=== PATIENT | female | born 1960 | race Caucasian/White ===

== ENCOUNTER 2020-02-03 19:54 | Observation (INO) | payer MEDICARE, BC ==
[2020-02-03] MEDS ORDERED: SODIUM CHLORIDE 0.9% 1,000 ML IV STA (20:37)
[2020-02-03 20:59] LABS: Basophils # (A) 0.1 k/uL (0-0.2); Basophils % (A) 1 %; Eosinophils # (A) 0.1 k/uL (0-0.7); Eosinophils % (A) 1 %; HCT 42.7 % (34.0-46.0); HGB 13.5 gm/dL (11.4-16.0); Lymphocytes % (A) 26 %; MCH 29.3 pg (25.0-35.0); MCHC 31.6 g/dL (31.0-37.0); MCV 92.9 fL (80.0-100.0); Mean Platelet Volume 7.1; Monocytes # (A) 0.4 k/uL (0-1.0); Monocytes % (A) 5 %; Neutrophils # (A) 5.2 k/uL (1.3-7.7); Neutrophils % (A) 66 %; Platelet Count 276 k/uL (150-450); RDW 12.3 % (11.5-15.5); WBC 7.9 k/uL (3.8-10.6)
[2020-02-03 21:09] LABS: ALT 19 U/L (4-34); AST 28 U/L (14-36); African American GFR (CKD) >90 (>60 ml/min/1.73 sqM); Albumin 4.4 g/dL (3.5-5.0); Alkaline Phosphatase 86 U/L (38-126); Anion Gap 7 mmol/L; Blood Urea Nitrogen 8 mg/dL (7-17); Calcium 10.3 mg/dL (8.4-10.2); Carbon Dioxide 25 mmol/L (22-30); Chloride 107 mmol/L (98-107); Glucose 102 mg/dL (74-99); Non-African American GFR(CKD) >90 (>60 ml/min/1.73 sqM); Potassium 3.9 mmol/L (3.5-5.1); Sodium 139 mmol/L (137-145); Total Bilirubin 0.4 mg/dL (0.2-1.3); Total Protein 7.5 g/dL (6.3-8.2)
[2020-02-03 21:14] LABS: D-Dimer 0.22 mg/L FEU (<0.60); Partial Thromboplastin Time 23.8 sec (22.0-30.0); Prothrombin Time 10.3 sec (9.0-12.0)
[2020-02-03] MEDS ORDERED: NITROGLYCERIN SL TABS 0.4 MG TAB SUBLINGUAL PRN (22:15)
[2020-02-03] MEDS ORDERED: DIAZEPAM 5 MG/ML 2 ML INJ IVP STA (22:21)
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
[2020-02-03] MEDS ORDERED: DIAZEPAM 5 MG/ML 2 ML INJ ONE (23:15)
[2020-02-04 05:48] LABS: Cholesterol 180 mg/dL (<200); HDL Cholesterol 82 mg/dL (40-60); LDL Cholesterol,Calculated 87 mg/dL (0-99); Triglycerides 54 mg/dL (<150)
[2020-02-04 07:46] VITALS: RESP 16; TEMP 98
[2020-02-04] MEDS ORDERED: ASPIRIN 325 MG TAB PO SCH (09:00)
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
[2020-02-04 12:24] VITALS: BP 132/62; PULSE 69
--- NOTE | 2020-02-04 12:30 | P.STRESS ---
- Stress Test Note Stress Test Results/Findings: Exam Performed: stress echo exercise Exam Date: 02/04/20 Reason for Exam: Chest Pain Height: 5 ft 6 in Weight: 69.1 kg Protocol: Magdi Stage: 3 Duration of Exercise: 10:59 Resting Heart Rate: 71 Resting Blood Pressure: 141/81 Maximum Achieved Heart Rate: 169 Maximum Achieved Blood Pressure: - 85% PMHR: 136 100% PMHR: 160 METS: 12.1 Technologist Comment: Stress Test Results/Findings: This is a 59-year-old female with history of ischemic heart disease in the family who was admitted to the hospital with chest pain and palpitations. Stress data: Baseline EKG showed sinus rhythm with normal NE and QRS duration. Patient works on a Magdi protocol for about 11 minutes achieving a maximum rate of 164, blood pressure of about 150/70. EKGs taken a x-ray did not reveal any significant changes from baseline, except mild J-point depression which are not significant for ischemia. Patient did not experience any chest pain. Echo data: Patient with limitation normal wall motion and thickening. Exercise echo images showed augmentation of wall motion and thickening in all segments. Final impression #1. Excellent exercise capacity #2 No chest pain during exercise. #3. Negative stress echo
--- NOTE | 2020-02-04 13:00 | ECHOF ---
Referral Reason:chest pain MEASUREMENTS -------- HEIGHT: 167.6 cm WEIGHT: 68.9 kg BP: 121/65 RVIDd: 2.9 cm (< 3.3) IVSd: 1.0 cm (0.6 - 1.1) LVIDd: 4.4 cm (3.9 - 5.3) LVPWd: 1.0 cm (0.6 - 1.1) IVSs: 1.6 cm LVIDs: 3.1 cm LVPWs: 1.3 cm LA Diam: 3.3 cm (2.7 - 3.8) LAESV Index (A-L): 20.10 ml/m Ao Diam: 2.9 cm (2.0 - 3.7) AV Cusp: 2.3 cm (1.5 - 2.6) MV EXCURSION: 21.475 mm (> 18.000) MV EF SLOPE: 68 mm/s (70 - 150) EPSS: 0.5 cm MV E Micha: 0.67 m/s MV DecT: 302 ms MV A Micha: 0.94 m/s MV E/A Ratio: 0.71 AR PHT: 719 ms RAP: 5.00 mmHg RVSP: 32.30 mmHg FINDINGS -------- Sinus rhythm. This was a technically good study. The left ventricular size is normal. Left ventricular wall thickness is normal. Overall left vent ricular systolic function is normal with, an EF between 60 - 65 %. The right ventricle is normal in size. Normal LA size by volume 22+/-6 ml/m2. The right atrium is normal in size. Aneurysmal Interatrial septum. There is mild aortic valve sclerosis. There is mild aortic regurgitation. There is trace mitral regurgitation. Mild tricuspid regurgitation present. Right ventricular systolic pressure is normal at < 35 mmHg. Trace/mild (physiologic) pulmonic regurgitation. The aortic root, ascending aorta and aortic arch are normal. Normal inferior vena cava with normal inspiratory collapse consistent with estimated right atrial pre ssure of 5 mmHg. The inferior vena cava is mildly dilated. There is no pericardial effusion. CONCLUSIONS -------- 1. Sinus rhythm. 2. This was a technically good study. 3. The left ventricular size is normal. 4. Left ventricular wall thickness is normal. 5. Overall left ventricular systolic function is normal with, an EF between 60 - 65 %. 6. The right ventricle is normal in size. 7. Normal LA size by volume 22+/-6 ml/m2. 8. The right atrium is normal in size. 9. Aneurysmal Interatrial septum. 10. There is mild aortic valve sclerosis. 11. There is trace mitral regurgitation. 12. Mild tricuspid regurgitation present. 13. Right ventricular systolic pressure is normal at < 35 mmHg. 14. Trace/mild (physiologic) pulmonic regurgitation. 15. The aortic root, ascending aorta and aortic arch are normal. 16. Normal inferior vena cava with normal inspiratory collapse consistent with estimated right atrial pressure of 5 mmHg. 17. The inferior vena cava is mildly dilated. 18. There is no pericardial effusion. PHARMACY STUDENT: Odalis Rosa RDCS
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
== END 2020-02-04 16:00 | disposition home or self-care (01) ==
LOC: EC 19:54 → 3SCARD 21:43
PROVIDERS: ADMIT Hospitalist; ATTEND Hospitalist
DX: R07.89 Other chest pain (principal); F41.9 Anxiety disorder, unspecified; R06.02 Shortness of breath; R42 Dizziness and giddiness; G89.4 Chronic pain syndrome; M54.9 Dorsalgia, unspecified; F51.04 Psychophysiologic insomnia; F51.05 Insomnia due to other mental disorder; Z87.828 Personal history of other (healed) physical injury and trauma; Z63.79 Other stressful life events affecting family and household; Z20.828 Contact with and (suspected) exposure to other viral communicable diseases; Z82.8 Family history of other disabilities and chronic diseases leading to disablement, not elsewhere classified; Z79.891 Long term (current) use of opiate analgesic; Z79.899 Other long term (current) drug therapy; Z79.82 Long term (current) use of aspirin; Z82.49 Family history of ischemic heart disease and other diseases of the circulatory system
CPT/HCPCS: 93005 ×2; 96374; 99285; 36415; 93351; 85379; 80061; 80053; 83735; 84484 ×2; 85025; 85610; 85730; 87635; G0378 ×2; J3360; 93306

== ENCOUNTER → 2022-04-25 | Outpatient (CLI) | payer MEDICARE, BC ==
[2022-04-25 19:02] LABS: Basophils # (A) 0.05 X 10*3/uL (0.00-0.10); Basophils % (A) 0.9 %; Eosinophils # (A) 0.04 X 10*3/uL (0.04-0.35); Eosinophils % (A) 0.7 %; HCT 42.6 % (37.2-46.3); HGB 13.5 g/dL (12.0-15.0); Immature Grans, Automated 0.2 %; Lymphocytes # (A) 1.69 X 10*3/uL (0.90-5.00); Lymphocytes % (A) 31.6 %; MCH 29.7 pg (27.0-32.0); MCHC 31.7 g/dL (32.0-37.0); MCV 93.8 fL (80.0-97.0); Mean Platelet Volume 10.8 fL (9.5-12.2); Monocytes # (A) 0.34 X 10*3/uL (0.20-1.00); Monocytes % (A) 6.4 %; NRBC Per 100 WBC 0 /100 WBCS (0.0-0.0); Neutrophils # (A) 3.21 X 10*3/uL (1.80-7.70); Neutrophils % (A) 60.2 %; Platelet Count 272 X 10*3/uL (140-440); RBC 4.54 X 10*6/uL (4.10-5.20); RDW 12.6 % (11.5-14.5); WBC 5.34 X 10*3/uL (4.50-10.00)
[2022-04-25 22:35] LABS: Albumin 4.5 g/dL (3.8-4.9); Albumin/Globulin Ratio 1.94 (1.60-3.17); Anion Gap 10.5 mmol/L (10.00-18.00); BUN/Creat Ratio 23.13 Ratio (12.00-20.00); Blood Urea Nitrogen 13.6 mg/dL (9.0-27.0); Calcium 9.7 mg/dL (8.7-10.3); Carbon Dioxide 27.8 mmol/L (20.0-27.5); Globulin 2.3 g/dL (1.6-3.3); HDL Cholesterol 96.7 mg/dL (40.00-60.00); Magnesium 2.2 mg/dL (1.5-2.4); Non-African American GFR(CKD) 98.3 (60.0-200.0); Potassium 4.4 mmol/L (3.5-5.5); T4, Free (Free Thyroxine) 1.13 ng/dL (0.800-1.800); Total Bilirubin 0.3 mg/dL (0.30-1.20); Total Protein 6.8 g/dL (6.2-8.2); Triglycerides 45.9 mg/dL (0.00-149.00)
[2022-04-25 23:05] LABS: Chol/HDL Ratio 2.19 Ratio; LDL Cholesterol,Direct Reflex 93.3 mg/dL (0.00-129.00)
== END | disposition home or self-care (01) ==
LOC: LABWHC1 13:00
PROVIDERS: ATTEND Family Medicine
DX: E78.5 Hyperlipidemia, unspecified (principal); R53.82 Chronic fatigue, unspecified; R42 Dizziness and giddiness
CPT/HCPCS: 36415; 80053; 80061; 83721; 83735; 84439; 84443; 84630; 85025

== ENCOUNTER → 2022-05-04 | Outpatient (CLI) | payer MEDICARE, BC ==
--- NOTE | 2022-05-04 12:01 | US ---
EXAMINATION TYPE: US carotid duplex BILAT DATE OF EXAM: 05/04/2022 COMPARISON: NONE CLINICAL HISTORY: R42 DIZZINESS,R53.82 FATIGUE,E78.5 HYPERLIPEMIA. Dizziness, fatigue TECHNIQUE: Carotid duplex ultrasound examination. Indirect Doppler criteria was utilized. FINDINGS: EXAM MEASUREMENTS: RIGHT: Peak Systolic Velocity (PSV) cm/sec ----- Right CCA: -76.7 ----- Right ICA: -79.1 ----- Right ECA: -68.8 ICA/CCA ratio: 1.0 RIGHT: End Diastole cm/sec ----- Right CCA: -17.8 ----- Right ICA: -31.8 ----- Right ECA: -11.3 LEFT: Peak Systolic Velocity (PSV) cm/sec ----- Left CCA: -50.8 ----- Left ICA: -74.7 ----- Left ECA: -58.8 ICA/CCA ratio: 1.4 LEFT: End Diastole cm/sec ----- Left CCA: -16.4 ----- Left ICA: -25.9 ----- Left ECA: -5.97 VERTEBRALS (direction of flow): Right Vertebral: Antegrade Left Vertebral: Antegrade Rhythm: Normal No significant focal plaque on grayscale images . 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 Criteria for Assigning % of Stenosis / Diameter reduction (Estimation based on the indirect measurements of the internal carotid artery velocities (ICA PSV). 1. Normal (no stenosis)=ICA PSV < 125 cm/s: ratio < 2.0: ICA EDV<40 cm/s. 2. Less than 50% stenosis=ICA PSV < 125 cm/s: ratio < 2.0: ICA EDV<40 cm/s. 3. 50 to 69% stenosis=ICA PSV of 125 to 230 cm/s: ration 2.0 ? 4.0: ICA EDV 40-100 cm/s. 4. Greater than 70% stenosis to near occlusion= ICA PSV > 230 cm/s: ratio > 4.0: ICA EDV > 100 cm/s. 5. Near occlusion= ICA PSV velocities may be low or undetectable: variable ratio and ICA EDV. 6. Total occlusion=unable to detect flow.
--- NOTE | 2022-05-06 11:21 | CA ---
Transthoracic Echo Report Name: Lizz Brady Age: 61 Gender: F : 1960 Exam Date: 05/04/2022 11:46 Exam Location: [facility] Ht (in): 63 Wt (lb): 126 Ordering Physician: Toby Ervin MD Attending/Referring Phys: Emergency Room Clinician Angela Farooq RDCS Procedure CPT: Indications: R42 DIZZINESS,R53.82 FATIGUE,E78.5 HYPERLIDEMIA Cardiac Hx: Technical Quality: Fair Contrast 1: Total Dose (mL): Contrast 2: Total Dose (mL): MEASUREMENTS (Male / Female) Normal Values 2D ECHO LV Diastolic Diameter PLAX 5.0 cm 4.2 - 5.9 / 3.9 - 5.3 cm LV Systolic Diameter PLAX 3.0 cm IVS Diastolic Thickness 0.8 cm 0.6 - 1.0 / 0.6 - 0.9 cm LVPW Diastolic Thickness 0.8 cm 0.6 - 1.0 / 0.6 - 0.9 cm LV Relative Wall Thickness 0.3 RV Internal Dim ED PLAX 3.3 cm LA Volume 47.7 cm??? 18 - 58 / 22 - 52 cm??? M-MODE Aortic Root Diameter MM 2.9 cm LA Systolic Diameter MM 2.6 cm LA Ao Ratio MM 0.9 AV Cusp Separation MM 1.8 cm DOPPLER AV Peak Velocity 111.4 cm/s AV Peak Gradient 5.0 mmHg AI Peak Velocity 434.4 cm/s AI Peak Gradient 75.5 mmHg AI Pressure Half Time 699.4 ms LVOT Peak Velocity 92.2 cm/s LVOT Peak Gradient 3.4 mmHg MV Area PHT 3.6 cm??? Mitral E Point Velocity 50.9 cm/s Mitral A Point Velocity 89.8 cm/s Mitral E to A Ratio 0.6 MV Deceleration Time 210.5 ms MV E' Velocity 6.4 cm/s Mitral E to MV E' Ratio 7.9 TR Peak Velocity 251.9 cm/s TR Peak Gradient 25.4 mmHg Right Ventricular Systolic Press 29.9 mmHg FINDINGS Left Ventricle Normal Left ventricular size, wall thickness, systolic function with no obvious regional wall motion abnormalities. Normal Left ventricular diastolic filling pattern. Left ventricular ejection fraction is estimated at 55-60 %. Right Ventricle Normal right ventricular size and function. Right ventricular systolic pressure within normal limits. Right Atrium Normal right atrial size. Aneurismal atrial septum. Left Atrium Normal left atrial size. No evidence for an atrial septal defect. Mitral Valve Structurally normal mitral valve. Mild to moderate mitral regurgitation. Aortic Valve Trileaflet aortic valve. Aortic valve sclerosis. Trace to mild aortic regurgitation. Tricuspid Valve Structurally normal tricuspid valve. Mild tricuspid regurgitation. Pulmonic Valve Trace pulmonic regurgitation. Pericardium No pericardial effusion. Aorta Normal size aortic root and proximal ascending aorta. CONCLUSIONS Normal left ventricular dimension and systolic function Mitral valve prolapse was mild to moderate MR Mild aortic insufficiency Previewed by: Dr. Clint Waterman MD (Electronically Signed) Final Date: 06 May 2022 11:20
== END | disposition home or self-care (01) ==
LOC: RADUSWWP 10:36
PROVIDERS: ATTEND Family Medicine
DX: I08.1 Rheumatic disorders of both mitral and tricuspid valves (principal); R42 Dizziness and giddiness; R53.82 Chronic fatigue, unspecified; E78.5 Hyperlipidemia, unspecified
CPT/HCPCS: 93306; 93880

== ENCOUNTER → 2022-06-08 | Outpatient (CLI) | payer MEDICARE, BC ==
[2022-06-08 20:20] LABS: Gliadin AB IgA, Deaminated NEGATIVE (NEGATIVE); Gliadin AB IgA, Unit 2.3 U/mL; Gliadin AB IgG, Deaminated NEGATIVE (NEGATIVE); Gliadin AB IgG, Unit 0.4 U/mL
== END | disposition home or self-care (01) ==
LOC: LABWHC1 10:05
PROVIDERS: ATTEND Family Medicine
DX: K52.9 Noninfective gastroenteritis and colitis, unspecified (principal)
CPT/HCPCS: 36415; 83516; 85652; 86140

== ENCOUNTER 2022-07-10 07:06 | Day surgery (SDC) | payer MEDICARE, BC ==
[2022-07-09 12:26] VITALS: BMI 20.3
[~2022-07-10 07:06] MED LIST: LACTATED RINGERS 1,000 ML IV SCH
[2022-07-10 07:55] VITALS: RESP 16; TEMP 97.2
[2022-07-10] MEDS ORDERED: PROPOFOL 10 MG/ML 20 ML VIAL IV ONE (08:50)
[2022-07-10] MEDS ORDERED: LIDOCAINE 2% INJ 20 MG/ML (2 ML VIAL) ONE (08:50)
--- NOTE | 2022-07-10 09:09 | P.PCN ---
Date of Procedure: 07/10/22 Procedure(s) Performed: Brief history: Patient is a pleasant 61-year-old white female scheduled for an elective upper endoscopy as well as colonoscopy as a part of evaluation of abdominal pain, intermittent nausea and chronic diarrhea for the last 1 year duration. She has bowel movements anywhere from 3-4 a day which are loose to watery in consistency with no bleeding. She lost 50 pounds since onset of the symptoms a year ago. Procedure performed: Esophagogastroduodenoscopy biopsy Colonoscopy with biopsy Preoperative diagnosis: Abdominal pain/nausea Chronic diarrhea and weight loss of 50 pounds in the last 1 year duration Anesthesia: MAC Procedure: After informed consent was obtained from the patient was brought into the endoscopy unit and IV sedation was administered by anesthesia under continuous monitoring. Initially upper endoscopy was done. The Olympus GF 160 video endoscope was inserted inserted into the mouth and esophagus intubated without any difficulty and was gradually advanced into the stomach and duodenum and carefully examined. The bulb and second part of the duodenum appeared normal. Biopsies were done from the duodenum to rule out celiac disease. The scope was then withdrawn into the stomach adequately insufflated with air and upon careful examination the antrum had mild mottling of the mucosa consistent with gastritis and biopsies were done from this area. The body, cardia and fundus appeared normal. The scope was then withdrawn into the esophagus. The GE junction was located at 40 cm to the incisors. It appeared regular with no erythema erosions or ulcerations. Rest of the esophagus appeared normal. Patient tolerated the procedure well. At this time the patient continued to remain sedation. Initial digital rectal examination was normal. Olympus CF 160 video colonoscope was then inserted into the rectum and gradually advanced to the cecum without any difficulty. Careful examination was performed as the scope was gradually being withdrawn. The prep was excellent. The cecum, ascending colon, transverse colon, descending colon, sigmoid colon and rectum appeared normal. Random biopsies were done from ascending and descending colon to rule out microscopic/collagenous colitis Retroflexion was performed in the rectum and no lesions were noted. Patient tolerated the procedure well. Impression: 1. Upper endoscopy revealed mild antral gastritis but no evidence of esophagitis or peptic ulcer 2. Colonoscopy was within normal limits with no evidence of colitis or colorectal Recommendations: Findings of this examination were discussed with the patient as well as her family. She was advised to follow with the biopsy results. Follow up in office in 2 weeks. Recommend repeat colonoscopy in 10 years..
[2022-07-10 09:37] VITALS: BP 142/76; PULSE 61
== END 2022-07-10 09:56 | disposition home or self-care (01) ==
LOC: ORWHC2ENDO 07:06
PROVIDERS: ATTEND Internal Medicine Gastroenterology
DX: K52.9 Noninfective gastroenteritis and colitis, unspecified (principal); K29.50 Unspecified chronic gastritis without bleeding; F41.9 Anxiety disorder, unspecified; G89.29 Other chronic pain; K21.9 Gastro-esophageal reflux disease without esophagitis; Z90.49 Acquired absence of other specified parts of digestive tract; Z98.51 Tubal ligation status; Z79.899 Other long term (current) drug therapy
CPT/HCPCS: 45380; 43239; J2704; J2001; 88305; 88342

== ENCOUNTER → 2022-10-16 | Outpatient (CLI) | payer MEDICARE, BC ==
[2022-10-16 13:22] VITALS: BP 109/74; PULSE 84; RESP 17; TEMP 98.1
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
== END ==
LOC: WWCWWP 13:06
PROVIDERS: ATTEND Obstetrics & Gynecology
DX: Z01.419 Encounter for gynecological examination (general) (routine) without abnormal findings (principal); F41.9 Anxiety disorder, unspecified; R19.7 Diarrhea, unspecified; R63.4 Abnormal weight loss; R14.0 Abdominal distension (gaseous); R10.2 Pelvic and perineal pain; K21.9 Gastro-esophageal reflux disease without esophagitis; E78.5 Hyperlipidemia, unspecified; Z68.1 Body mass index [BMI] 19.9 or less, adult

== ENCOUNTER → 2022-10-23 | Outpatient (CLI) | payer MEDICARE, BC ==
--- NOTE | 2022-10-23 12:54 | US ---
EXAMINATION TYPE: US abdomen complete DATE OF EXAM: 10/23/2022 COMPARISON: NONE CLINICAL HISTORY: 62-year-old female R10.9 UNSPECIFIED ABDOMINAL PAIN. TECHNIQUE: Multiple sonographic images of the abdomen are obtained. FINDINGS: EXAM MEASUREMENTS: Liver Length: 14.3 cm Gallbladder Wall: 0.2 cm CBD: 0.5 cm Spleen: 9.8 cm Right Kidney: 10.9 x 4.0 x 4.4 cm Left Kidney: 11.3 x 4.2 x 5.5 cm Pancreas: Partially obscured by bowel gas, portions visualized wnl. Liver: homogeneous Gallbladder: wnl Evidence for sonographic Connolly's sign: No CBD: wnl Spleen: wnl Right Kidney: mild hydronephrosis. Nonobstructive echogenic calculus measuring 0.4 x 0.3 x 0.3cm, ec hogenic renal pyramids Left Kidney: Slightly echogenic renal pyramids, somewhat limited views due to bowel gas. No hydroneph rosis. Upper IVC: measures 2.3cm, distended appearing. Abd Aorta: proximal upper limits of normal at 2.3 cm. Right and left iliac arteries normal caliber me asuring up to 1.2 cm. IMPRESSION: 1. Mild right-sided hydronephrosis. Correlate for any renal colic and with urinalysis. 2. Nonobstructive 4 mm right renal stone. 3. Somewhat echogenic appearance to the medullary pyramids of both kidneys. Consider short interval f ollow-up. Findings are nonspecific but may be seen in the setting of medullary sponge kidney. The ade earance does not clearly show nephrocalcinosis.
== END | disposition home or self-care (01) ==
LOC: RADUSWWP 07:32
PROVIDERS: ATTEND Internal Medicine Gastroenterology
DX: N13.2 Hydronephrosis with renal and ureteral calculous obstruction (principal); N28.89 Other specified disorders of kidney and ureter
CPT/HCPCS: 76700

== ENCOUNTER → 2022-10-23 | Outpatient (CLI) | payer MEDICARE, BC ==
--- NOTE | 2022-10-23 12:34 | US ---
EXAMINATION TYPE: US pelvic complete DATE OF EXAM: 10/23/2022 COMPARISON: NONE CLINICAL HISTORY: 62-year-old female R10.2 PELVIC AND PERINEAL PAIN R14.0 ABDOMINAL BLOATING. TECHNIQUE: Transvaginal (TV) and Transabdominal (TA) Date of LMP: 10 years prior FINDINGS: EXAM MEASUREMENTS: Uterus: 5.2 x 2.5 x 3.7 cm Endometrial Stripe: 0.3 cm Right Ovary: Extensive peristalsing bowel obscuring ovary Left Ovary: Extensive peristalsing bowel obscuring ovary 1. Uterus: Anteverted, mildly heterogeneous myometrium, hypoechoic probable fibroid right posterior uterine body measuring 1.1 x 0.8 x 1.0cm 2. Endometrium: wnl 3. Right Ovary: Obscured by overlying bowel gas 4. Left Ovary: Obscured by overlying bowel gas 5. Bilateral Adnexa: Extensive peristalsing bowel in bilateral adnexa 6. Posterior cul-de-sac: wnl IMPRESSION: 1. Endometrial stripe measures thin at 3 mm. 2. A round 1.1 cm hypoechoic area within the right posterior uterine body myometrium, likely intramur al fibroid. 3. Unable to visualize either ovary due to extensive peristalsing bowel in both adnexa.
--- NOTE | 2022-10-23 15:51 | P.PN ---
Progress Note - Text Progress Note Date: 10/23/22 OUTPATIENT FOLLOW-UP NOTE TEST(S)/RESULTS: Pelvic ultrasound done on 10/23/2022 shows a normal endometrial stripe of 3 mm, a 1.1 cm probable uterine fibroid and no ovarian masses are seen. METHOD OF NOTIFICATION: She was notified by phone. PATIENT COMMENTS: The patient is requesting a prescription for genital HSV. She currently is near the tail end of an outbreak. DIAGNOSIS: No evidence of ovarian mass by ultrasound to explain her multiple symptoms including weight loss, heart racing and abdominal bloating. DISCUSSION: I have explained that her many symptoms are most likely not gynecologic in nature. A prescription for Valtrex 500 mg by mouth twice a day 3 [facility]. There will be 5 refills. PLAN: She is to establish with a primary care physician who can then evaluate her for her multiple symptoms.
== END | disposition home or self-care (01) ==
LOC: RADUSWWP 07:34
PROVIDERS: ATTEND Obstetrics & Gynecology
DX: R10.2 Pelvic and perineal pain (principal); R14.0 Abdominal distension (gaseous)
CPT/HCPCS: 76830; 76856

== ENCOUNTER → 2022-12-14 | Outpatient (CLI) | payer MEDICARE, BC ==
--- NOTE | 2022-12-15 08:26 | US ---
EXAMINATION TYPE: US venous doppler duplex LE RT DATE OF EXAM: 12/14/2022 4:32 PM COMPARISON: NONE CLINICAL HISTORY: 62-year-old female M79.661 Pain right leg. SIDE PERFORMED: right TECHNIQUE: The lower extremity deep venous system is examined utilizing real time linear array sonog chata with graded compression, doppler sonography and color-flow sonography. FINDINGS: VESSELS IMAGED: Common Femoral Vein Deep Femoral Vein Greater Saphenous Vein * Femoral Vein Popliteal Vein Small Saphenous Vein * Proximal Calf Veins (* superficial vessels) Right Leg: No evidence of DVT. Minimally complex fluid collection right popliteal fossa = 5.6 x 1.6 x 4.6cm, Pascual's cyst IMPRESSION: 1. No evidence for DVT within the right lower extremity imaged from the groin to the upper calf. 2. Moderate sized Pascual's cyst measuring 5.6 x 4.6 cm.
== END | disposition home or self-care (01) ==
LOC: RADUSWWP 16:00
PROVIDERS: ATTEND Family Medicine
DX: M79.661 Pain in right lower leg (principal); M71.21 Synovial cyst of popliteal space [Baker], right knee

== ENCOUNTER → 2023-01-24 | Outpatient (CLI) | payer MEDICARE, BC ==
--- NOTE | 2023-01-25 06:44 | MR ---
EXAMINATION TYPE: MR abdomen wo con DATE OF EXAM: 01/24/2023 COMPARISON: Ultrasound abdomen October 23, 2022. HISTORY: Diarrhea, weight loss. Standard multiplanar, multisequence MRI departmental protocol Multiplanar, multisequence images of the abdomen were acquired without contrast. Diffusion weighted i maging was performed. FINDINGS: Lung bases are grossly clear. Liver and gallbladder appear within normal limits. No biliary dilatation is evident. Spleen and both adrenal glands are felt within normal limits. No concerning p ancreatic mass or ductal dilatation identified. No concerning renal mass or hydronephrosis. Patient h as little intra-abdominal fat making evaluation slightly suboptimal. No suspicious bowel dilatation i s seen. There is slight scoliotic curvature in the thoracolumbar spine. No intra-abdominal ascites. N o greater than 3.0 cm AAA. IMPRESSION: No suspicious findings are evident on noncontrast MRI.
== END | disposition home or self-care (01) ==
LOC: RADMRIMAIN 12:34
PROVIDERS: ATTEND Internal Medicine Gastroenterology
DX: R63.4 Abnormal weight loss (principal)
CPT/HCPCS: 74181

== ENCOUNTER → 2023-07-17 | Outpatient (CLI) | payer MEDICARE, BC ==
--- NOTE | 2023-07-17 09:13 | P.PN ---
Progress Note - Text Progress Note Date: 07/17/23 Chief Complaint: Vulvar itching during the past month which has been getting worse. HPI: This is a 62-year-old with an LMP of 2009. The patient has been experiencing right vulvar itching during the past month and this has become much more severe during the past few days. She states she only notices it on the right vulvar area and extends to the area of the anus. The itching has gotten so severe that she has used a towel to rub and scratch the area. She denies any vaginal discharge or vaginal odor. She has used various [id number] creams including Monistat to see if it helps, but nothing seems to help. She has noticed during the past month that she has had some urinary urgency and does not feel like she is emptying her bladder very well. She denies dysuria or significant urinary frequency. She has had loose stools in the morning. She has not had any sexual activity during the past 6 months. She denies any sexual activity with anyone other than her . ROS: She is gained about 13 pounds over the past 9 months. Respiratory: Some sinus drainage. She denies cardiac problems. GI: She has noticed loose stool in the a.m. and was diagnosed with IBS. She denies nausea or vomiting. : As in the HPI. PE: Blood pressure: 133/77, Height: 5 feet 6 inches, Weight: 134 pounds, Temperature: 98.3, Pulse: 59. Pulse oximeter 97%. This is a well developed, well nourished, white female who is alert and orientedx3, in no acute distress. External genitalia: The posterior right labia majora is swollen and erythematous. There are no signs of ulceration or excoriation. There is no significant warmth. There is a stripe of a macular type rash extending in the crease in the groin from the right labia majora toward the right buttock with some erythema also extending toward the perineum and right perianal areas. Vagina: There is no unusual discharge or odor noted. Impression: 1. 62-year-old menopausal female with acute vulvitis with severe itching. Differential diagnosis will include contact dermatitis, lakhwinder vaginitis, bacterial vaginosis, or other nonspecific dermatitis. Recurrent genital HSV is unlikely. 2. Urinary symptoms including some urinary urgency and incomplete emptying of the bladder. Possible UTI as well as possible urinary retention secondary to her ongoing genital symptoms and #1 Plan: 1. Affirm vaginitis panel has been obtained from the vagina. 2. Urine has been obtained for urinalysis with culture and sensitivities. 3. Kenalog 0.1% cream applied twice a day as needed for vulvar itching. The electronic prescription will be sent to [facility] on [facility]. I have recommended that she avoid over washing with soap as well as avoiding rubbing and scratching. 4. Benadryl as directed as needed for itching at night. She can also use this during the day, but she was warned about potential sedative effects. Time spent with the patient: 25 minutes
[2023-07-17 09:50] VITALS: BP 133/77; PULSE 59; RESP 17; TEMP 98.3
[2023-07-18 05:43] LABS: Appearance,Urine Clear (Clear); Bilirubin,Urine Negative (Negative); Blood,Urine Negative (Negative); Color,Urine Yellow (Yellow); Ketones,Urine Negative (Negative); Nitrite,Urine Negative (Negative); PH, Urine 6.5; Specific Gravity,Urine 1.003 (1.001-1.030); Urobilinogen,Urine 0.2 E.U./DL
[2023-07-18 14:21] LABS: Gardnerella Negative (Negative); Trichomonas Negative (Negative)
== END ==
LOC: WWCWWP 08:30
PROVIDERS: ATTEND Obstetrics & Gynecology
DX: N76.2 Acute vulvitis (principal); R39.15 Urgency of urination; Z78.0 Asymptomatic menopausal state
CPT/HCPCS: 81003; 87086; 87480; 87510; 87660

== ENCOUNTER → 2023-10-29 | Outpatient (CLI) | payer MEDICARE, BC ==
[2023-10-30 04:34] LABS: Alternaria alternata IgE <0.10 kU/L; Aspergillus fumagatus IgE <0.10 kU/L; Birch IgE <0.10 kU/L; Cat Epith & Dander IgE <0.10 kU/L; Cladosporian herbarum IgE <0.10 kU/L; Cockroach IgE <0.10 kU/L; Dermato. farinae IgE <0.10 kU/L; Dog Dander IgE <0.10 kU/L; Maple (Box Elder) IgE <0.10 kU/L; Oak IgE <0.10 kU/L; Ragweed,Common IgE <0.10 kU/L
[2023-10-30 14:16] LABS: Aureo. pullulans IgE <0.10 kU/L (<0.10); Aureo. pullulans IgE Class CLASS 0; Candida albicans IgE Class CLASS 0; Epicoccum purpurascens Class CLASS 0; Epicoccum purpurascens IgE <0.10 kU/L (<0.10); Johnson Grass IgE Class CLASS 0; Mucor racemosus IgE <0.10 kU/L (<0.10); Mucor racemosus IgE Class CLASS 0; Rhizopus nigricans IgE <0.10 kU/L (<0.10); Rhizopus nigricans IgE Class CLASS 0; Timothy Grass IgE <0.10 kU/L (<0.10); Timothy Grass IgE Class CLASS 0
[2023-10-30 14:17] LABS: S.rostrata/Helminth Class CLASS 0; S.rostrata/Helminth IgE <0.10 kU/L (<0.10); Sycamore(Mpl.Lf) IgE <0.10 kU/L (<0.10); Sycamore(Mpl.Lf) IgE Class CLASS 0; Walnut Tree IgE <0.10 kU/L (<0.10); Walnut Tree IgE Class CLASS 0
[2023-10-30 14:18] LABS: Com. Pigweed IgE <0.10 kU/L (<0.10); Com. Pigweed IgE Class CLASS 0; Cottonwood IgE <0.10 kU/L (<0.10); English Plantain IgE Class CLASS 0; Lamb's Quarter IgE <0.10 kU/L (<0.10); Lamb's Quarter IgE Class CLASS 0; White Ash IgE Class CLASS 0
== END | disposition home or self-care (01) ==
LOC: LABWHC1 14:46
PROVIDERS: ATTEND Otolaryngology
DX: J30.89 Other allergic rhinitis (principal)
CPT/HCPCS: 36415; 82785; 86003

== ENCOUNTER → 2024-01-10 | Outpatient (CLI) | payer MEDICARE, BC ==
--- NOTE | 2024-01-10 09:16 | US ---
EXAMINATION TYPE: US thyroid st tissue head/neck DATE OF EXAM: 01/10/2024 COMPARISON: NONE CLINICAL INDICATION: Female, 63 years old with history of K21.9 GASTRO-ESOPHAGEAL REFLUX DISEASE WITH O E06.3; abn labs GLAND SIZE: Right Lobe: 4.6 x 1.3 x 1.3 cm Overall Parenchyma: homogeneous Left Lobe: 4.3 x .9 x 1.3 cm Overall Parenchyma: homogeneous Isthmus Thickness: .3 cm NODULES RIGHT: # of nodules measured on right: 1 1. 1.0 X .3 x .5 cm, upper lateral, cystic or almost completely cystic, anechoic nodule, which is w ider than tall, with smooth margins, without echogenic foci. Prior size: no previous. LEFT: # of nodules measured on left: 0 ISTHMUS: # of nodules measured in the isthmus: 0 Bilateral neck scanned, no evidence of lymphadenopathy. IMPRESSION: Benign cystic nodule right thyroid lobe. No concerning solid nodules identified 2016 ACR TI-RADS LEVEL: *Highest TI-RADS level nodule reported
--- NOTE | 2024-01-10 09:19 | US ---
EXAMINATION TYPE: US abdomen complete DATE OF EXAM: 01/10/2024 COMPARISON: NONE CLINICAL INDICATION: Female, 63 years old with history of K21.9 GASTRO-ESOPHAGEAL REFLUX DISEASE WITH O E06.3; pain TECHNIQUE: Multiple sonographic images of the abdomen are obtained. 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 The intrahepatic portion of the IVC and proximal abdominal aorta are within normal limits. There is no evidence of cholelithiasis. Common bile duct is unremarkable. The visu alized portions of the pancreas are homogenous. The spleen is unremarkable. Kidneys are symmetric a nd free of hydronephrosis. No renal lesions are seen. IMPRESSION: No discrete abnormality seen.
== END | disposition home or self-care (01) ==
LOC: RADUSWWP 08:20
PROVIDERS: ATTEND Internal Medicine
DX: K21.9 Gastro-esophageal reflux disease without esophagitis (principal); E04.1 Nontoxic single thyroid nodule
CPT/HCPCS: 76536; 76700

== ENCOUNTER → 2024-01-16 | Outpatient (CLI) | payer MEDICARE, BC ==
--- NOTE | 2024-01-17 17:51 | MR ---
EXAMINATION TYPE: MR brain wo con DATE OF EXAM: 01/16/2024 COMPARISON: None HISTORY: Chronic Rhinitis CONTRAST: Performed utilizing 0 mL intravenous Gadavist gadolinium contrast. TECHNIQUE: Multiplanar, multiecho imaging on a 3.0 Marilyn magnet is performed through the brain. Stud y is performed within 24 hours of arrival to the hospital. The craniovertebral junction is normal. The pituitary is normal. Cribriform plate appears unremarka ble. Diffusion-weighted imaging is performed. No abnormal hyperintensity is present to suggest an acute i ntracranial infarct or acute ischemic change. There is a punctate hyperintensity in subcortical white matter left frontal lobe punctate hyperintens ity may be within the inferior right brain stem near the cerebellar peduncle . Ventricles and sulci are appropriate for the patient age. There may be very minimal mucosal thickening throughout ethmoid air cells. Frontal sinuses are clear. Maxillary sinuses are clear. No obvious fluid collections are evident. IMPRESSION: 1. Couple of punctate T2 hyperintensities which are nonspecific. Consider migraine headaches. 2. Very minimal mucosal thickening within ethmoid air cells. No suspicious fluid collections.
== END | disposition home or self-care (01) ==
LOC: RADMRIMAIN 16:03
PROVIDERS: ATTEND Otolaryngology
DX: J34.89 Other specified disorders of nose and nasal sinuses (principal); J31.0 Chronic rhinitis
CPT/HCPCS: 70551

== ENCOUNTER → 2024-03-25 | Outpatient (CLI) | payer MEDICARE, BC ==
--- NOTE | 2024-03-25 15:46 | US ---
EXAMINATION TYPE: US abdomen complete DATE OF EXAM: 03/25/2024 COMPARISON: US abdomen 01/10/2024, MR abdomen 01/24/2023 CLINICAL INDICATION: Female, 63 years old with history of D72.819 DECREASED WHITE BLOOD CELL COUNT, U NSPECIF; Abnormal labs, back pain TECHNIQUE: Multiple sonographic images of the abdomen are obtained. FINDINGS: EXAM MEASUREMENTS: Liver Length: 14.8 cm Gallbladder Wall: 0.2 cm CBD: 0.7 cm Spleen: 8.4 cm Right Kidney: 10.3 x 3.6 x 5.0 cm Left Kidney: 9.2 x 4.5 x 5.0 cm ALUMNI RELATIONS COORDINATOR NOTES: Pancreas: 2mm panc duct visualized, otherwise appeared wnl Liver: wnl Gallbladder: wnl Evidence for sonographic Connolly's sign: No CBD: wnl Spleen: wnl Right Kidney: wnl, lower pole gassed out Left Kidney: wnl, lower pole gassed out Upper IVC: wnl Abd Aorta: wnl The liver is homogenous. The intrahepatic portion of the IVC and proximal abdominal aorta are within normal limits. There is no evidence of cholelithiasis. Common bile duct is unremarkable. The visu alized portions of the pancreas are homogenous. The spleen is unremarkable. Kidneys are symmetric a nd free of hydronephrosis. No renal lesions are seen. IMPRESSION: No ultrasound evidence for acute process/abnormality.
== END | disposition home or self-care (01) ==
LOC: RADUSWWP 08:59
PROVIDERS: ATTEND Internal Medicine Hematology & Oncology
DX: D72.819 Decreased white blood cell count, unspecified (principal)
CPT/HCPCS: 76700

== ENCOUNTER → 2024-11-26 | Outpatient (CLI) | payer MEDICARE, BC ==
--- NOTE | 2024-11-26 15:11 | US ---
EXAMINATION TYPE: US thyroid st tissue head/neck DATE OF EXAM: 11/26/2024 COMPARISON: US(01/10/2024) CLINICAL INDICATION: Female, 64 years old with history of E04.1 THYROID CYST; F/u TECHNIQUE: Grayscale and color Doppler imaging of the thyroid gland. FINDINGS: GLAND SIZE: Right Lobe: 4.4x0.8x1.2cm Overall Parenchyma: homogeneous Left Lobe: 4.1x0.6x1.6cm Overall Parenchyma: homogeneous Isthmus Thickness: 0.3m NODULES RIGHT: # of nodules measured on right: 1 1. 0.4 0.2x 0.2m, lower mid, cystic or almost completely cystic, anechoic nodule, which is wider cecile n tall, with smooth margins, without echogenic foci. TR 1 Prior size: 1.0 0.3x 0.5m LEFT: # of nodules measured on left: 0 ISTHMUS: # of nodules measured in the isthmus: 0 Bilateral neck scanned, no evidence of lymphadenopathy. IMPRESSION: Benign, no fine-needle aspiration acquired 2017 ACR TI-RADS LEVEL: TI-RADS 1 - BENIGN: No FNA *Highest TI-RADS level nodule reported [email or web address], , 11/26/2024 3:09 PM
== END | disposition home or self-care (01) ==
LOC: RADUSWWP 14:32
PROVIDERS: ATTEND Internal Medicine
DX: E04.2 Nontoxic multinodular goiter (principal)
CPT/HCPCS: 76536

== ENCOUNTER 2025-03-03 12:25 | Day surgery (SDC) | payer MEDICARE, BC ==
[2025-03-02 11:40] VITALS: BMI 21.4
[2025-03-03 12:43] VITALS: TEMP 98.5
[2025-03-03] MEDS: LACTATED RINGERS 1,000 ML IV SCH (13:05)
[2025-03-03] MEDS: IV FLUID CONTINUATION 1,000 ML IV ONE (13:07)
[2025-03-03] MEDS ORDERED: PROPOFOL 10 MG/ML 20 ML VIAL IV ONE (13:12)
[2025-03-03] MEDS ORDERED: LIDOCAINE 1% INJ 10MG/ML (20 ML MDV) ONE (13:12)
[2025-03-03] MEDS: LIDOCAINE 2% INJ 20 MG/ML INTRATRACH ONE (13:17)
--- NOTE | 2025-03-03 13:55 | P.PCN ---
Date of Procedure: 03/03/25 Preoperative Diagnosis: Chronic cough Postoperative Diagnosis: Chronic cough Procedure(s) Performed: Flexible bronchoscopy in the bronchoalveolar lavage of the right middle lobe Anesthesia: MAC Surgeon: Daria Chapin Pathology: other Condition: stable Disposition: same day Operative Findings: Flexible bronchoscopy in the bronchial lavage of the right middle lobe Indication: Chronic cough, concern for a foreign body as the patient was coughing out some hair follicles. Procedure was done in the endoscopy suite. A consent was signed. A timeout was done. Anesthetic agents was administered by anesthesia at the bedside. After achieving adequate sedation, the flexible bronchoscope was introduced to the left nostril and was advanced into the upper airway. Examination of the posterior oropharynx, larynx, and upper airways was done. No significant abnormalities identified. Some respiratory secretions were seen in the vallecula. Epiglottis identified it was within normal limits. The arytenoids were normal. Vocal cord function and mobility was also within normal limits. A total of 2 cc of 1% lidocaine was applied to the vocal cord and following the flexible bronchoscope was introduced into the upper trachea. Subglottic trachea was within normal limits. Examination of the entire trachea was done and some liquidy loose respiratory secretions identified in the posterior wall of the trachea and those were suctioned out without any major difficulties. Airway inspection was completed the more respiratory secretions identified bilaterally in the bilateral mainstem bronchi and lower lobe bronchi. Therapeutic airway suctioning was done. Airway inspection was completed. The bronchial mucosa looked slightly friable and inflamed. Nevertheless, no foreign bodies identified. A complete examination was done including the right upper lobe bronchus, bronchus intermedius, right middle lobe bronchus, right lower lobe bronchus and the various 10 segments on the right and examination of the left side included the left upper lobe bronchus and the left lower lobe bronchus and there is 8 segments on the left. The bronchoscope was wedged into the right middle lobe and a bronchoalveolar lavage was done. A total of 60 cc of saline was infused and 20 cc of aspirate was obtained and the aspirate was nonbloody. The airways were cleaned and suctioned out and the bronchoscope was removed and the patient was transferred to recovery in stable condition. The bronchial lavage will be sent for microbial cultures and analysis. No complications.
[2025-03-03 14:04] VITALS: BP 127/78; PULSE 78; RESP 18
[2025-03-03 22:57] LABS: Appearance,BF Blood Tinged (Clear); RBC, Body Fluid 9200 /UL (0-2000)
[2025-03-04 09:44] LABS: Nucleated Cells, Body Fluid 1050 /UL
== END 2025-03-03 14:27 | disposition home or self-care (01) ==
LOC: ORWHC2ENDO 12:25
PROVIDERS: ATTEND Internal Medicine Critical Care Medicine
DX: R05.3 Chronic cough (principal); E06.3 Autoimmune thyroiditis; F41.9 Anxiety disorder, unspecified; I34.0 Nonrheumatic mitral (valve) insufficiency; K21.9 Gastro-esophageal reflux disease without esophagitis; Z79.899 Other long term (current) drug therapy
CPT/HCPCS: 31624; 31645; 87798 ×3; 87496; 87498; 87529; 88108; 88305; 89050; 87502; 87634; 87070; 87205; 87116; 87102; 87206; 87635; J2003; J2704